=== PATIENT | female | born 1955 | race Caucasian/White ===

== ENCOUNTER → 2022-08-06 | Day surgery (SDC) | payer MEDICARE, BC ==
[~2022-08-06] MED LIST: ACETAMINOPHEN/CODEINE 300MG - 30MG TAB ONE; B12; CELEBREX200 MG PO; DEXAMETHASONE SOD PHOS INJ 4 MG/ML SDV ONE; ELAVIL; EPINEPHRINE HCL 1:1000 1ML 1 MG/ML AMP ONE; FENTANYL CITRATE/PF 100MCG/2 ML INJ ONE; LIDOCAINE 2% /EPINEPHRINE 20 ML SDV INJ ONE; LIDOCAINE HCL 2% LOCAL INJ 5 ML SDV VIAL INJ ONE; MICARDIS20 MG PO; MIDAZOLAM HCL 2 MG/2 ML VIAL ONE; MULTI-VITAMIN1 EACH PO; ONDANSETRON HCL INJ 2MG/ML 2ML 2 MG/ML VIAL ONE; POVIDONE IODINE 0.05% 0.05 % ML PO ONE; PREMARIN0.625 MG PO; PROPOFOL IV EMULSION 10 MG/ML 20 ML VIAL ONE; PROTONIX20 MG PO; ROCURONIUM BROMIDE 10 MG/ML 5ML VIAL IV ONE; SEVOFLURANE INHAL SOLN 250 ML PEN BTL ONE; SYNTHROID75 MCG PO; VITAMIN D; VYTORIN 10-201 EACH PO
[2022-08-06 09:20] VITALS: BP 155/82
== END | disposition home or self-care (01) ==
LOC: OR 05:54
PROVIDERS: ATTEND Otolaryngology Otolaryngology/Facial Plastic Surgery
DX: J34.2 Deviated nasal septum (principal); J34.89 Other specified disorders of nose and nasal sinuses; E03.9 Hypothyroidism, unspecified; K21.9 Gastro-esophageal reflux disease without esophagitis; I10 Essential (primary) hypertension; Z79.899 Other long term (current) drug therapy
CPT/HCPCS: 30520; 71046; 88300; 93005; J0171; J1100; J2001 ×2; J2250; J2405; J2704; J3010